=== PATIENT | male | born 1975 | race Caucasian/White ===

== ENCOUNTER 2019-03-07 07:04 | Outpatient (CLI) | payer OTHER ==
--- NOTE | 2019-03-07 08:19 | MRI Report ---
Reason: CERVICALGIA Procedure Date: 03/07/2019 Accession Number: [id number] / [id number] Procedure: MRI - Cervical Spine W/O CPT Code: Final Report FULL RESULT: EXAM: MRI CERVICAL SPINE WITHOUT CONTRAST EXAM DATE: 03/07/2019 07:28 AM. CLINICAL HISTORY: Cervicalgia. COMPARISONS: None. TECHNIQUE: Multiplanar, multisequence T1-weighted and fluid-sensitive sequences of the cervical spine without contrast. Other: None. FINDINGS: The craniocervical junction is normal. There are normal signal intensities demonstrated throughout the cervical spinal cord. There is mild desiccation of the disk spaces throughout the cervical spine. There is a mild to moderate decrease in the height of the disk at C5-C6 and mild at C4-C5 and C6-C7. There is hypertrophy of the palatine tonsils. There is a mild decrease in the height of the disk at C3-C4, C4-C5, and mild to moderate at C5-C6. C2-C3: The uncovertebral hypertrophy produces moderate to severe narrowing of the right neural foramen. There is moderate narrowing of the left neural foramen. There is mild bilateral facet arthropathy. There is no significant central canal stenosis. C3-C4: There is mild to moderate left facet arthropathy. The uncovertebral hypertrophy produces moderate to severe narrowing of the neural foramina bilaterally. Recommend correlation for C4 radiculopathies. There is a small disk osteophyte complex producing a mild central canal stenosis. C4-C5: There is a small central protrusion of the disk with annular tear producing a mild central canal stenosis. The facets are normal. The uncovertebral hypertrophy produces severe left and moderate to severe right foraminal stenoses. Recommend correlation for C5 radiculopathies. C5-C6: There is a broad-based disk osteophyte complex with a right paracentral extrusion of the disk. There is a mild central canal stenosis. The uncovertebral hypertrophy produces severe right and moderate to severe left foraminal stenoses. Recommend correlation for C6 radiculopathies. The facets are normal. C6-C7: There is a broad-based disk osteophyte complex with superimposed central extrusion of the disk. There is mild to moderate central canal stenosis. The uncovertebral hypertrophy produces moderate bilateral foraminal stenoses. The facets are normal. C7-T1: There is a small disk bulge with superimposed central extrusion of the disk producing a mild central canal stenosis. There is mild right facet arthropathy. There is no significant foraminal stenosis. T1-T2: There is no significant disk bulge or central canal stenosis. There is no significant foraminal stenosis. The facets are normal. IMPRESSION: 1. There is a mild to moderate central canal stenosis from a broad-based disk osteophyte complex at C6-C7 with superimposed central extrusion of the disk. 2. There is a broad-based disk osteophyte complex with a right paracentral extrusion of the disk at C5-C6 producing a mild central canal stenosis. There is severe right and moderate to severe left foraminal stenoses which may produce C6 radiculopathies. 3. There is a mild central canal stenosis from small central protrusion of the disk at C4-C5. There is severe left and [id number] right foraminal stenoses which may produce C5 radiculopathies. 4. There is moderate to severe narrowing of the neural foramina bilaterally at C3-C4 from uncovertebral hypertrophy. Recommend correlation for C4 radiculopathies. There is a small disk osteophyte complex producing a mild central canal stenosis. 5. There is moderate to severe narrowing of the right neural foramen at C2-C3 from uncovertebral hypertrophy which may produce a right C3 radiculopathy.
== END 2019-03-07 07:05 | disposition home or self-care (01) ==
LOC: DI 07:04
PROVIDERS: ATTEND Student in an Organized Health Care Education/Training Program
DX: M50.31 Other cervical disc degeneration, high cervical region (principal); M47.812 Spondylosis without myelopathy or radiculopathy, cervical region; M50.221 Other cervical disc displacement at C4-C5 level; M48.02 Spinal stenosis, cervical region
CPT/HCPCS: 72141

== ENCOUNTER 2019-03-21 09:56 | Outpatient (CLI) | payer OTHER ==
[2019-03-21 10:45] VITALS: BP 140/90
--- NOTE | 2019-03-21 10:45 | SLEEP CARE CONSULTATION ---
Information from patient questionnaire entered by Ximena Martinez. I have reviewed and concur with the information entered by Ximena Martinez. This document represents the service I personally performed and the decisions made by me, Ashanti Munoz MD, [facility]. History of Present Illness Reason for Visit: New patient Chief Complaint: reports: Unrefreshed sleep, Snoring, Excessive daytime sleepiness, Observed pauses in breathing, Frequent awakenings at night Duration of Symptoms: 15 years Usual bedtime: 0911-7619 Time it takes to fall asleep: 10-20 minutes Snores at night: Yes Observed to quit breathing while asleep: Yes Sleeps alone due to snoring: No Number of times waking at night: 3-5 Reasons for waking at night: reports: Snoring, Other (arms falling asleep) Toss, Turn, or Twitch while sleeping: Yes Recalls having dreams: Yes Usually gets out of bed at: [id number] Feels refreshed in the morning: No Morning headache: Yes Sleepy or fatigued during the day: Yes Ever fallen asleep while driving: No Takes day naps: No Dreams during day naps: Yes Prior sleep studies: No Additional HPI information: I had the pleasure of seeing Mr. Carranza today regarding the possibility of him having a sleep disorder. As you know, he is a 43 year old gentleman who complains of loud snore, observed apneas, unrefreshed sleep, persistent fatigue, and excessive daytime sleepiness. He has had the symptoms for at least 15 yea rs. The patient tells me that he normally goes to bed around 10 - 11 pm, and it takes him approximately 10 - 20 minutes to fall asleep. He has been told that he snores loudly and irregularly at night. He has also been observed to stop breathing in his sleep. His can still sleep in the same bed. He can recall waking up on the average of 3 - 5 times during the night. Most of the time he wakes up because of his own snoring, choking, and having to gasp for air. There is a lot of tossing and turning in his sleep. No somniloquy (sleep talking) or somnambulism (sleep walking). Generally he can recall having dreams. In the morning he usually gets up out of the bed around 5:30 - 6 a.m. not feeling refreshed nor rested. He usually does have a morning headache that goes away quickly after waking up. His dentist told him that it is from his clenching his teeth at night. During the day he complains of feeling sleepy and fatigued. His score on [place] Sleepiness Scale is 9 out of 24. He has never fallen asleep while driving nor has had any accident due to sleepiness. He usually does not take naps during the day. Upon falling asleep during the day he reports having dreams. He has never had sleep paralysis, experienced cataplexy or symptoms of restless leg syndrome. He denies having impaired concentration during the day. Subjective Initial [place] Sleepiness Scale score: 9 Past Medical History Past Medical History: reports: Hypertension (not treated with medication), Anxiety Social History The patient's occupation is active . Patient is and lives in [place]. Have you smoked in the past 12 months: No Alcohol use: Yes Alcohol amount and frequency: 1-2 drinks, 3-4 times/week Caffeine use: No Family History Family history of sleep disordered breathing: Yes Family Hx Sleep Apnea: Mother: Sleep apnea - Treated Allergies and Home Medications Drug allergies reviewed: Yes Home medication list reviewed: Yes Review of Systems Weight gain over past 5 years: 15 Cardiovascular: reports: high blood pressure Respiratory: denies: shortness of breath, wheeze, sputum production, chronic cough, other Gastrointestinal: reports: diarrhea Urinary: denies: incontinence, frequency, urgency, impotence, other Neurological: reports: headaches Psychiatric: reports: anxiety Ear/Nose/Throat: reports: nasal congestion, nose bleeds Endocrine: denies: thyroid disease, history of goiter, sluggishness, too hot or cold, excessive thirst, increased appetite, increased urination, unexplained weakness, other Musculoskeletal: reports: neck pain, back pain Immunologic: reports: allergies to food or environment Physical Exam Vital signs obtained and entered by: Dr. Munoz Blood Pressure: 140/90 Cuff size: regular Heart Rate: 75 O2 Saturation: 94 Height: 6 ft 2 in Weight: 245 lb Body Mass Index: 31.4 BMI Classification: Obesity Class 1 Neck circumference: 18.5 Mood/affect: normal HEENT: No craniofacial malformation Nostrils: patent to airflow Turbinates: normal Septum: midline Mouth and throat: narrow oropharynx Soft palate: long Hard palate: normal Uvula: normal Uvula visualization: 50% Mallampati Class II Tongue: normal in size Tonsils: small Chin and jaw: normal size and position Neck: normal w/o lymphadenopathy or thyromegaly Heart: regular rate and rhythm Lungs: clear bilaterally Abdomen: soft, non-tender Extremities: no edema or clubbing Neurologic: intact, no focal deficits Impression and Plan IMPRESSION: 1. Obstructive Sleep Apnea-Hypopnea Syndrome, as suggested by history of loud and irregular snoring, observed cessation of breath while asleep, frequent awakenings during the night, unrefreshed sleep, morning headache, and daytime hypersomnolence. Narrow oropharynx and obesity are common predisposing factors for obstructive sleep apnea-hypopnea syndrome. Untreated obstructive sleep apnea can also cause hypertension. Pathophysiology of sleep-disordered breathing was discussed. I recommend proceeding to polysomnography to confirm the diagnosis and to assess severity. If he has significant sleep disordered breathing, a manual CPAP titration study will also be performed to find the optimal treatment pressure. I informed the patient of what the sleep studies involve and after some discussion, he agreed to proceed. Plan: 1. Schedule polysomnography + manual CPAP titration study and return in 1 to 2 weeks after the study to discuss result and initiate therapy. 2. Avoid long distance driving or when feeling sleepy. 3. Avoid alcohol, sedative and muscle relaxant around bedtime. 4. Attempt to lose weight. I spent 100% of this 20 minute visit face to face with the patient with greater than 50% of this was spent time counseling the patient and coordination of care.
== END 2019-03-21 09:57 | disposition home or self-care (01) ==
LOC: SC 09:56
PROVIDERS: ATTEND Internal Medicine Pulmonary Disease
DX: R06.83 Snoring (principal); R06.81 Apnea, not elsewhere classified; G47.8 Other sleep disorders; R51 Headache; G47.10 Hypersomnia, unspecified; E66.9 Obesity, unspecified; Z68.31 Body mass index [BMI] 31.0-31.9, adult
CPT/HCPCS: 99203; 99212

== ENCOUNTER 2019-03-31 19:32 | Outpatient (CLI) | payer OTHER | END 2019-03-31 19:33 | disposition home or self-care (01) | LOC: SC 19:32 | PROVIDERS: ATTEND Internal Medicine Pulmonary Disease | DX: G47.33 Obstructive sleep apnea (adult) (pediatric) (principal); G47.63 Sleep related bruxism ==

== ENCOUNTER 2019-04-03 13:04 | Outpatient (CLI) | payer OTHER ==
--- NOTE | 2019-04-03 13:35 | SLEEP CARE CONSULTATION ---
Information from patient questionnaire entered by Ximena Martinez. I have reviewed and concur with the information entered by Ximena Martinez. This document represents the service I personally performed and the decisions made by me, Ashanti Munoz MD, [facility]. History of Present Illness Initial [place] Sleepiness Scale score: 9 Current [place] Sleepiness Scale score: 11 Additional HPI information: HPI: Mr. Carranza returned with his for follow up of the sleep study he had two nights ago. The polysomnography showed that the patient had slightly reduced sleep efficiency due to a prolonged awakening in the middle of the night. The sleep architecture was abnormal for sleep fragmentation and reduced amount of time spent in slow wave sleep (N3). Respiratory monitoring showed mild obstructive sleep apnea-hypopnea (AHI = 9.1) associated with frequent arousals, oxyhemoglobin desaturation and minimal hypoxia (ambar oxygen saturation of 89%). The respiratory events occurred only during supine sleep (supine AHI = 14.4; non-supine = 0.00). Snore was light to moderate in intensity. There was no significant periodic leg movement of sleep. Cardiac rhythm was normal sinus rhythm without significant arrhythmia. No abnormal behavior (parasomnia) observed during the night except for mild bruxism. The patient was informed of these findings. I explained to him the pathophysiology behind obstructive sleep apnea. We then spent quite a bit of time discussing different treatment options. For mild obstructive sleep apnea, surgery and oral appliance are alternatives to nasal CPAP therapy but in moderate or severe cases, nasal CPAP is the most effective and reliable treatment. Weight loss in an obese individual is strongly recommended. After some discussion, he opted to go with the nasal CPAP therapy. I explained to him how CPAP machine works and what to expect when using the machine. He is encouraged to use CPAP every night especially in the first 2 to 3 nights in order to get used to it. He should call his CPAP supplier or me to discuss any mechanical problem that may occur. If he snores or feels like he is not getting enough air from the machine, he should notify me and I will increase the pre ssure. Allergies and Home Medications Drug allergies reviewed: Yes Home medication list reviewed: Yes Review of Systems Review of systems same as previous: Yes Physical Exam Weight: 245 lb Impression and Plan IMPRESSION: 1. Obstructive Sleep Apnea-Hypopnea Syndrome, mild, associated with minimal hypoxemia and sleep fragmentation. Possibly, this is the cause of the patients symptoms of frequent awakenings, unrefreshed sleep, and excessive daytime sleepiness. Obstructive sleep apnea-hypopnea can also cause high blood pressure. As mentioned above, the patient will be started on autoCPAP set between 5 and 15 cmH2O. He may need a manual CPAP/BiPAP titration study later. PLAN: 1. Prescription made for an autoCPAP, heated humidifier, and related supplies. 2. Attempt to lose weight and avoid alcohol consumption near bedtime. 3. Because he is leaving the area for [facility], he was advised to follow up with a sleep physician in [place] where he is relocating to. I spent 100% of this 20 minute visit face to face with the patient with greater than 50% of this was spent time counseling the patient and coordination of care.
== END 2019-04-03 13:05 | disposition home or self-care (01) ==
LOC: SC 13:04
PROVIDERS: ATTEND Internal Medicine Pulmonary Disease
DX: G47.33 Obstructive sleep apnea (adult) (pediatric) (principal)
CPT/HCPCS: 99212; 99213